=== PATIENT | male | born 1990 | race Caucasian/White ===

== ENCOUNTER 2017-12-30 11:44 | Emergency (ER) | payer BC ==
[~2017-12-30] VITALS: Ht 172.7 cm; Wt 89.1 kg
[~2017-12-30 11:44] MED LIST: MEDROL 4MG DOSPA4 MG PO
[2017-12-30 11:48] VITALS: TEMP 99.3
[2017-12-30] MEDS ORDERED: CEPHALEXIN500 M1 PO (13:11)
[2017-12-30] MEDS ORDERED: DOXYCYCLINE 10100 MG PO (13:11)
[2017-12-30] MEDS ORDERED: NORCO 325 MG-51 TAB PO (13:11)
[2017-12-30 13:27] VITALS: BP 158/103; PULSE 106
== END 2017-12-30 13:30 | disposition home or self-care (01) ==
LOC: COL.ER 11:44
DX: L02.414 Cutaneous abscess of left upper limb (principal); F17.210 Nicotine dependence, cigarettes, uncomplicated; Z23 Encounter for immunization

== ENCOUNTER 2018-01-01 12:13 | Emergency (ER) | payer BC ==
[~2018-01-01] VITALS: Ht 172.7 cm; Wt 89.1 kg
[~2018-01-01 12:13] MED LIST changes: +CEPHALEXIN500 M1 PO; +DOXYCYCLINE 10100 MG PO; +NORCO 325 MG-51 TAB PO
[2018-01-01 12:24] VITALS: BP 141/78; PULSE 81; TEMP 98.4
== END 2018-01-01 12:43 | disposition home or self-care (01) ==
LOC: COL.ER 12:13
DX: Z48.00 Encounter for change or removal of nonsurgical wound dressing (principal)